=== PATIENT | female | born 1925 | race Caucasian/White ===

== ENCOUNTER 2016-07-16 06:13 | Inpatient (IN) | payer OTHER ==
[~2016-07-16] VITALS: Ht 165.1 cm; Wt 66.8 kg
[2016-07-16 00:30] VITALS: BP 142/69
[2016-07-16] MEDS ORDERED: SODIUM CHLORIDE 0.9% 1,000 ML IV ONE (06:40)
[2016-07-16] MEDS ORDERED: FUROSEMIDE 40 MG/4 ML VIAL IV ONE (07:30)
[2016-07-16 07:40] LABS: Basophils # (auto) 0 uL; Basophils % (auto) 0.2 % (0.0-2.0); DEFINITIVE VIEW TRANSMISSION; Eosinophils # (auto) 0 uL; Eosinophils % (auto) 0.2 % (0.0-7.0); Hematocrit 32.3 % (36.0-46.0); Hemoglobin 10.6 g/dL (12.2-16.2); Lymphocytes # (auto) 0.5 uL; Lymphocytes % (auto) 5.9 % (10.0-50.0); Mean Corpuscular Hemoglobin 25.9 pg (28.0-32.0); Mean Corpuscular Hgb Conc. 32.8 g/dL (32.0-36.0); Mean Corpuscular Volume 78.9 fL (80.0-100.0); Monocytes # (auto) 0.7 uL; Neutrophils # (auto) 7.4 uL; Neutrophils % (auto) 85.7 % (37.0-80.0); Platelet Count (auto) 206 10^3/uL (140-450); Red Cell Distribution Width 17.4 % (11.6-16.0); SUSPECT VIEW TRANSMISSION; White Blood Cell 8.6 10^3/uL (4.4-10.8)
[2016-07-16 07:45] LABS: Albumin 3.6 g/dL (3.4-5.0); BUN/Creatinine Ratio 16.8; Calcium 8.6 mg/dL (8.5-10.1); Potassium 3.7 mmol/L (3.5-5.1)
[2016-07-16 07:48] LABS: Magnesium 2.6 mg/dL (1.6-2.6); Total Protein 7.3 g/dL (6.4-8.2)
[2016-07-16 07:58] LABS: INR 1.06 (0.9-1.15); Partial Thromboplastin Time 25.9 sec (22.64-33.71); Prothrombin Time 11.4 sec (9.37-12.3)
[2016-07-16 08:41] LABS: Temperature: 21.9 C (20.0-25.0)
[2016-07-16] MEDS ORDERED: PROCHLORPERAZINE EDISYLATE 5 MG/ML 2ML VIAL IV PRN (11:45)
[2016-07-16] MEDS ORDERED: NITROGLYCERIN 0.4 MG SL TAB SL PRN (11:45)
[2016-07-16] MEDS ORDERED: HYDROcodone-ACET 5/325MG TAB PO PRN (11:45)
[2016-07-16] MEDS ORDERED: ACETAMINOPHEN 500 MG TAB PO PRN (11:45)
[2016-07-16] MEDS ORDERED: LORazepam 0.5 MG TAB PO PRN (11:45)
[2016-07-16] MEDS ORDERED: DEXTROSE (50%) 50ML SYRG IV PRN (11:45)
[2016-07-16] MEDS ORDERED: TEMAZEPAM 15 MG CAP PO PRN (11:45)
[2016-07-16] MEDS ORDERED: LACTULOSE 20Gm/30ML SOLN PO PRN (11:45)
[2016-07-16] MEDS ORDERED: MORPHINE SULF INJ 2 MG/ML SYRINGE 1ML IV PRN ×2 (11:45)
[2016-07-16] MEDS ORDERED: IOHEXOL 350 MG/ML 100ML IJ ONE (11:59)
[2016-07-16 12:25] LABS: Urine Bilirubin Negative (Negative); Urine Blood Negative /uL (Negative); Urine Color Yellow (Yellow); Urine Glucose Normal (Normal); Urine Ketone Negative (Negative); Urine Nitrite Negative (Negative); Urine RBC <1 /hpf (0 - 4); Urine Squamous Epithelial Cell FEW /hpf (<5); Urine Urobilinogen Normal (Negative)
[2016-07-16] MEDS: ASPirin 81 mg TAB PO SCH (12:53)
[2016-07-16] MEDS: ACCU-CHEK COMFORT CURVE STRIP VI SCH ×3 (12:54→21:55)
[2016-07-16] MEDS: ENOXAPARIN SOD 40 MG/0.4 ML SYRINGE SC SCH (12:54)
[2016-07-16] MEDS: NITROGLYCERIN 0.2MG/HR TOPICAL PATCH TD SCH (12:54)
[2016-07-16] MEDS: ENALAPRIL MALEATE 2.5 MG TAB PO SCH (12:54)
[2016-07-16] MEDS: POTASSIUM CHL 20 Meq TABLET PO SCH (12:54)
[2016-07-16] MEDS: InsuLIN REG 1unit/0.01ml Soln (100units/ml) SC SCH ×3 (12:58→21:55)
[2016-07-16 16:51] VITALS: BP 138/54
[2016-07-16 20:00] VITALS: BP 118/35
[2016-07-16 22:00] VITALS: BP 118/35
[2016-07-16 23:00] VITALS: BP 158/77
[2016-07-17] VITALS (7 sets, daily range): BP systolic 121–159; BP diastolic 49–61
[2016-07-17 06:10] LABS: Basophils # (auto) 0 uL; Basophils % (auto) 0.5 % (0.0-2.0); DEFINITIVE VIEW TRANSMISSION; Eosinophils # (auto) 0 uL; Eosinophils % (auto) 0.3 % (0.0-7.0); Hematocrit 28.7 % (36.0-46.0); Hemoglobin 9.1 g/dL (12.2-16.2); Lymphocytes # (auto) 0.7 uL; Lymphocytes % (auto) 13.1 % (10.0-50.0); Mean Corpuscular Hgb Conc. 31.7 g/dL (32.0-36.0); Mean Corpuscular Volume 78.7 fL (80.0-100.0); Mean Platelet Volume 10.8 fL (7.4-10.4); Monocytes # (auto) 0.7 uL; Monocytes % (auto) 11.9 % (0.0-12.0); Neutrophils # (auto) 4.2 uL; Neutrophils % (auto) 74.2 % (37.0-80.0); Platelet Count (auto) 173 10^3/uL (140-450); Red Cell Distribution Width 17.7 % (11.6-16.0); White Blood Cell 5.7 10^3/uL (4.4-10.8)
[2016-07-17 06:39] LABS: Albumin 2.8 g/dL (3.4-5.0); BUN/Creatinine Ratio 18.6; Bilirubin, Total 0.8 mg/dL (0.2-1.0); Calcium 8.1 mg/dL (8.5-10.1); Potassium 3.8 mmol/L (3.5-5.1); Temperature: 21.6 C (20.0-25.0); Total Protein 5.9 g/dL (6.4-8.2)
[2016-07-17] MEDS: ACCU-CHEK COMFORT CURVE STRIP VI SCH ×4 (06:39→21:33)
[2016-07-17] MEDS: InsuLIN REG 1unit/0.01ml Soln (100units/ml) SC SCH ×4 (06:40→21:33)
[2016-07-17] MEDS ORDERED: FUROSEMIDE 40 MG/4 ML VIAL IV SCH (10:00)
[2016-07-17] MEDS: ASPirin 81 mg TAB PO SCH (10:00)
[2016-07-17] MEDS: ENALAPRIL MALEATE 2.5 MG TAB PO SCH (10:42)
[2016-07-17] MEDS: POTASSIUM CHL 20 Meq TABLET PO SCH (10:42)
[2016-07-17] MEDS: ENOXAPARIN SOD 40 MG/0.4 ML SYRINGE SC SCH (10:42)
[2016-07-17] MEDS: NITROGLYCERIN 0.2MG/HR TOPICAL PATCH TD SCH (10:43)
[2016-07-17] MEDS ORDERED: FUROSEMIDE 20 MG/2 ML VIAL IV ONE (12:30)
[2016-07-17] MEDS ORDERED: ALBUTEROL SULF 2.5 MG/0.5ML(0.5%) NEB SOLN NEB PRN (12:45)
[2016-07-17] MEDS: FUROSEMIDE 40 MG/4 ML VIAL IV SCH (17:56)
[2016-07-18 05:19] VITALS: BP 132/52
[2016-07-18] MEDS: FUROSEMIDE 40 MG/4 ML VIAL IV SCH (05:36)
[2016-07-18] MEDS: ACCU-CHEK COMFORT CURVE STRIP VI SCH ×2 (05:40→11:09)
[2016-07-18] MEDS: InsuLIN REG 1unit/0.01ml Soln (100units/ml) SC SCH ×2 (05:40→11:10)
[2016-07-18 09:00] VITALS: BP 140/67
[2016-07-18 09:35] LABS: BUN/Creatinine Ratio 18.6; Calcium 8.2 mg/dL (8.5-10.1); Magnesium 2.3 mg/dL (1.6-2.6); Potassium 3.7 mmol/L (3.5-5.1)
[2016-07-18] MEDS: ASPirin 81 mg TAB PO SCH (10:00)
[2016-07-18] MEDS: ENALAPRIL MALEATE 2.5 MG TAB PO SCH (11:03)
[2016-07-18] MEDS: POTASSIUM CHL 20 Meq TABLET PO SCH (11:03)
[2016-07-18] MEDS: ENOXAPARIN SOD 40 MG/0.4 ML SYRINGE SC SCH (11:04)
[2016-07-18] MEDS: NITROGLYCERIN 0.2MG/HR TOPICAL PATCH TD SCH (11:07)
[2016-07-18 12:37] VITALS: BP 149/65
[2016-07-18 14:55] VITALS: BP 135/66
== END 2016-07-18 16:00 | disposition home health service (06) | DRG 291 ==
LOC: ER 06:15 → TELE 06:16 → TELE-CENTR 15:38
PROVIDERS: ADMIT Internal Medicine; ATTEND Internal Medicine
DX: I13.0 Hypertensive heart and chronic kidney disease with heart failure and stage 1 through stage 4 chronic kidney disease, or unspecified chronic kidney disease (principal); I50.43 Acute on chronic combined systolic (congestive) and diastolic (congestive) heart failure; D63.8 Anemia in other chronic diseases classified elsewhere; E78.5 Hyperlipidemia, unspecified; F17.210 Nicotine dependence, cigarettes, uncomplicated; I25.10 Atherosclerotic heart disease of native coronary artery without angina pectoris; E11.22 Type 2 diabetes mellitus with diabetic chronic kidney disease; I48.2 Chronic atrial fibrillation; K21.9 Gastro-esophageal reflux disease without esophagitis; N18.9 Chronic kidney disease, unspecified; T46.0X5A Adverse effect of cardiac-stimulant glycosides and drugs of similar action, initial encounter; Z80.0 Family history of malignant neoplasm of digestive organs; Z83.3 Family history of diabetes mellitus; Z85.028 Personal history of other malignant neoplasm of stomach; Z95.0 Presence of cardiac pacemaker; Y92.89 Other specified places as the place of occurrence of the external cause; Z79.82 Long term (current) use of aspirin; Z79.899 Other long term (current) drug therapy
CPT/HCPCS: 36415; 71020; 71275; 80048; 80053; 80061; 80162; 81001; 82550; 82962; 83036; 83735; 83880; 84443; 84484; 85025; 85379; 85610; 85730; 93005; 93306; 93970; 94761; 96361; 96374